=== PATIENT | female | born 1965 ===

== ENCOUNTER 2020-05-10 11:52 | Day surgery (SDC) | payer OTHER ==
[2020-05-10] MEDS: Multivitamins, Adult 10 ML, Thiamine HCl 100 MG, Folic Acid 1 MG in Dextrose 5 %-0.45 %... IV SCH ×2 (12:39→14:44)
[2020-05-10 14:47] VITALS: BP 97/55; TEMP 97.4
== END 2020-05-10 16:38 | disposition home or self-care (01) ==
LOC: ONC/OP 11:52
PROVIDERS: ATTEND Surgery
DX: E86.0 Dehydration (principal); Z88.0 Allergy status to penicillin; Z88.5 Allergy status to narcotic agent; Z88.6 Allergy status to analgesic agent
CPT/HCPCS: 96365; 96366; J3411; J7042